=== PATIENT | male | born 1965 | race Caucasian/White ===

== ENCOUNTER 2019-05-09 06:08 | Day surgery (SDC) | payer BC ==
[2019-05-09] VITALS (16 sets, daily range): BP systolic 120–138; BP diastolic 55–89; PULSE 55–62; TEMP 97.6–98.6
[~2019-05-09] VITALS: Ht 190.7 cm; Wt 150.4 kg
[~2019-05-09 06:08] MED LIST: AEROSPAN80 MCG/Act IH; ALBUTEROL0.83 MG/ML IH; ARTHROTEC 775 MG/TAB PO; ASPIRIN 32325 MG/TAB PO; CLEOCIN HC150 MG/CAP PO; DOXYCYCLINE 10100 MG PO; FLONASEALLERGY NS; GLUCOPHAGE1000 MG PO; GLUCOTROL10 MG PO; HCTZ 25MG TAB25 MG PO; IPRATROPIUM BROM3 M1 IH; LEVAQUIN 750MG750 M1 PO; LEVEMIR100 U/ML SQ; MEVACOR10 MG PO; PREDNISONE20 MG PO; PRIL40 PO; PRILOSEC 20MG20 MG PO; PROAIR HFA0.09 MG/AC IH; RESTORIL 1515 MG/CAP PO; TAMIFLU 75MG75 MG PO; TENORMIN 5050 MG/TAB PO; VIAGRA100 M1; ZYRTEC 10MG10 MG PO
[2019-05-09 07:12] LABS: HEMATOCRIT 41.4 % (42.0-52.0); MEAN CELL VOLUME 89 fl (80.0-100.0); MEAN CORPUSCULAR HEMOGLOBIN 30 pg (27.0-31.0); MEAN CORPUSCULAR HGB CONC 34 g/dl (33.0-37.0); MEAN PLATELET VOLUME 9.7 fl (7.4-10.4); PLATELET COUNT 194 K/mm3 (130-400); RED BLOOD COUNT 4.64 M/mm3 (4.20-5.60); REDCELL DISTRIBUTION WIDTH-CV 12.6 % (11.5-14.5)
[2019-05-09 07:21] LABS: CREATININE, serum 0.98 (0.66-1.25); POTASSIUM 4.3 mmol/L (3.4-5.0)
[2019-05-09 07:28] LABS: PROTHROMBIN TIME 11.4 SECONDS (9.7-12.8)
[2019-05-09 07:31] LABS: PARTIAL THROMBOPLASTIN TIME 32.8 SECONDS (26.0-37.0)
[2019-05-09] MEDS ORDERED: VITAMINC1000TA PO (08:06)
[2019-05-09] MEDS ORDERED: MULTI VITAMINS1 TAB PO (08:06)
[2019-05-09] MEDS ORDERED: PROBIOTIC FORMU1 CAP PO (08:07)
[2019-05-09] MEDS ORDERED: GLUCOSAMINE 1000 PO (08:07)
[2019-05-09] MEDS ORDERED: STOOL SOFTENER100 M2 PO (08:08)
[2019-05-09] MEDS ORDERED: FLOVENT DI100 MCG/Ac IH (08:08)
--- NOTE | 2019-05-09 08:28 | NUR ---
SEE MERGE FOR MEDICATION ADMINISTRATION TIMES AND INTRA AND POST SEDATION ASSESSMENTS.
--- NOTE | 2019-05-09 09:41 | NUR ---
hand off report to cesar prieto who will assume care until patient is moved to ICU. pt is on a nitro drip at 10mcg/hr. pt is alert and oriented. is at bedside with patient. pt has no pain, questions or concerns. TR band to r wrist with 14cc of air in the band.
--- NOTE | 2019-05-09 09:45 | NUR ---
Pt transferred to [facility] room 14 from drop crew laborer at this time. Pt arrived via bed and was placed on telemetry monitoring upon arrival. Pt voiced no complaints or concerns and present with stable vitals. R radial cath site with TR band in place with 14 ml of air inflation, no drainage or hematoma present.
--- NOTE | 2019-05-09 12:00 | NUR ---
Pt resting comfortably in bed. Denies pain or any other discomforts. Vitals stable at this time. R radial cath site clean, dry, et intact with no drainage or hematoma present. Bed in low position, call light within reach, will continue to monitor.
--- NOTE | 2019-05-09 19:42 | NUR ---
Bedside report given to COREY Mancia.
--- NOTE | 2019-05-09 21:31 | NUR ---
2123- HEP XA 0.07. HEPARIN GTT INCREASED TO 12.5ML WITH BOLUS 1000UNITS, VERIFIED WITH COREY CASSIDY
--- NOTE | 2019-05-09 22:36 | NUR ---
PT RESTING IN BED, DENIES PAIN AT THIS TIME. RIGHT RADIAL SITE ASSESSED, PT DENIES PAIN AT SITE, DRESSING D/C/I. NTG AND HEPARIN GTT CURRENTLY INFUSING. VSS AT THIS TIME. PT ACKNOWLEDGE UNDERSTANDING OF TEACHING IN REGARDS TO POST CATH CARE FOR PUNCTURE SITE. WILL CONTINUE TO MONITOR PT STATUS AND UPDATE PROVIDERS NEEDED.
[2019-05-10 00:04] VITALS: BP 123/76; PULSE 70; TEMP 98.3
[2019-05-10 03:39] VITALS: BP 115/72; PULSE 57; TEMP 98; TEMP 98.8
--- NOTE | 2019-05-10 04:50 | NUR ---
HEP XA LVL CONTINUES TO DROP DESPITE BOLUS AND RATE INCREASE, NEW IV STARTED AND NEW BAG HUNG. WILL CONTINUE TO MONITOR NEXT HEP aX LVL AND UPDATE PROVIDERS.
--- NOTE | 2019-05-10 08:00 | NUR ---
Pt awake, visiting with , denies discomfort/needs. States ready to go home.
[2019-05-10 08:02] VITALS: BP 128/90; PULSE 62; TEMP 97.9
--- NOTE | 2019-05-10 09:49 | NUR ---
NTG and Heparin off per cardiology
[2019-05-10] MEDS ORDERED: LIPITOR20 MG PO (11:00)
[2019-05-10] MEDS ORDERED: PLAVIX 75MG TAB75 MG PO (11:00)
[2019-05-10] MEDS ORDERED: ASPIRIN E.C. 8181 MG PO (11:00)
--- NOTE | 2019-05-10 11:45 | NUR ---
DC home, ambulatory accompanied by . Instructions reviewed. Questions addressed. Verbalizes understanding of importance of calling Wander's office on Sunday to schedule follow up appointment with cardiology.
--- NOTE | 2019-05-10 12:09 | NUR ---
Clinical Services Director stopped by and offered prayer and support while family was in room.
== END 2019-05-10 11:45 | disposition home or self-care (01) ==
LOC: COL.CAR 06:08 → EU 09:45 → IMCU 16:21 → COL.CAR 05-10 11:45
PROVIDERS: Internal Medicine Cardiovascular Disease
DX: I25.10 Atherosclerotic heart disease of native coronary artery without angina pectoris (principal); I10 Essential (primary) hypertension; E78.5 Hyperlipidemia, unspecified; E11.9 Type 2 diabetes mellitus without complications; Z79.4 Long term (current) use of insulin; Z79.82 Long term (current) use of aspirin; Z79.899 Other long term (current) drug therapy; K21.9 Gastro-esophageal reflux disease without esophagitis; Z87.891 Personal history of nicotine dependence; Z88.1 Allergy status to other antibiotic agents; E66.9 Obesity, unspecified; Z68.41 Body mass index [BMI] 40.0-44.9, adult
CPT/HCPCS: OP; C1725; C1769; C1874; C1887; C9600; J1644; J1815; J2250; J3010; Q9967